=== PATIENT | female | born 1935 | race Caucasian/White ===

== ENCOUNTER 2017-12-07 07:38 | Inpatient (IN) | payer MEDICARE, BC ==
[2017-12-07] MEDS ORDERED: Bisacodyl 10 MG Supp RECTAL PRN (15:09)
[2017-12-07] MEDS: Acetaminophen/HYDROcodone 325-5 MG Tab PO PRN (17:13)
[2017-12-07] MEDS: Ferrous Sulfate 325 MG Tab PO SCH (18:52)
--- NOTE | 2017-12-07 19:35 | PCM.HP ---
H&P History of Present Illness - General Date of Service: 12/07/17 Admit Problem/Dx: Admission Diagnosis/Problem Admission Diagnosis/Problem Hip fracture requiring operative repair Source of Information: Patient, Old Records History Limitations: Reports: No Limitations - History of Present Illness Initial Comments - Free Text/Narative: Beti is an 82-year-old female admitted for physical therapy. She had revision of right arthroplasty by Dr. Saleh in [place], [place] on 2017. Post op,Ranjana has been doing suboptimally with therapy due to Rt quad weakness and leg giving out. She was determined to be unsafe for discharge home from [facility] and will need ongoing rehab in a swing bed. She has been deconditioned physically due to long standing Rt hip pain and will benefit from swing bed rehab. She has a history of chronic kidney disease stable, hypertension for which antihypertensives was stopped postop. She also has GERD pulmonary hypertension and history of mitral insufficiency that is stable. Ranjana lives alone in a duplex. right hip Pain Score (Numeric/FACES): 6 - Related Data Allergies/Adverse Reactions: Allergies Allergy/AdvReac Type Severity Reaction Status Date / Time No Known Allergies Allergy Verified 06/15/15 13:01 Home Medications: Home Meds Lutein/Minerals/Vit A,C & E [Ocuvite] 1 tab PO DAILY 10/03/13 [History] atorvaSTATin Calcium [Atorvastatin Calcium] 20 mg PO DAILY 10/03/13 [History] Aspirin [Ecotrin] 325 mg PO BID 12/07/17 [History] Bisacodyl [Dulcolax] 10 mg RC DAILY PRN 12/07/17 [History] Calcium Citrate/Vitamin D3 [Calcium Cit-Vit D 315-200] 1 tab PO BID 12/07/17 [ History] Docusate Sodium/Sennosides [Senokot-S] 2 each PO BEDTIME PRN 12/07/17 [History] Ferrous Sulfate [Slow Release Iron] 160 mg PO BIDPC 12/07/17 [History] Fish Oil/Bush-3 Fatty Acids [Fish Oil 1,000 MG] 1 gm PO DAILY 12/07/17 [History ] Hydrocodone/Acetaminophen [Hydrocodon-Acetaminophen 5-325] 1 tab PO Q6H PRN [History] Trimethoprim 100 mg PO DAILY 12/07/17 [History] Past Medical History HEENT History: Reports: Cataract Cardiovascular History: Reports: High Cholesterol, Hypertension Other Cardiovascular History: hx of mitral valve insufficiency; pulmonary hypertension. Respiratory History: Reports: Other (See Below) Other Respiratory History: dyspnea on exertion. Gastrointestinal History: Reports: GERD Genitourinary History: Reports: Other (See Below) Other Genitourinary History: Chronic kidney disease, urinary tract infection. [employer]SM[employer] WORK[employer] History: Reports: Musculoskeletal History: Reports: Other (See Below) Other Musculoskeletal History: bilateral knee sx, several back surgeries, right hip replacement 13 years ago. Immunologic History: Reports: Other (See Below) Other Immunologic History: chronic antibiotic suppression. - Past Surgical History Cardiovascular Surgical History: Reports: None Social & Family History - Family History Family Medical History: Noncontributory - Tobacco Use Smoking Status *Q: Never Smoker Second Hand Smoke Exposure: No - Caffeine Use Caffeine Use: Reports: None - Alcohol Use Days Per Week of Alcohol Use: 0 - Recreational Drug Use Recreational Drug Use: No H&P Review of Systems - Review of Systems: Review Of Systems: ROS reveals no pertinent complaints other than HPI. Exam - Exam Exam: See Below - Vital Signs Vital Signs: Last Vital Signs Temp 98.3 F 12/07/17 16:00 Pulse 81 12/07/17 16:00 Resp 18 12/07/17 16:00 BP 119/65 12/07/17 16:00 Pulse Ox 95 12/07/17 16:00 Weight: 84.482 kg - Exam Quality Assessment: No: Supplemental Oxygen General: Alert, Oriented HEENT: PERRLA Neck: Supple Lungs: Clear to Auscultation Cardiovascular: Regular Rate GI/Abdominal Exam: Normal Bowel Sounds, Soft Extremities: Normal Inspection, No Pedal Edema Skin: Warm, Dry, Intact Neurological: Cranial Nerves Intact, Reflexes Equal Bilateral Psychiatric: Alert, Normal Affect, Normal Mood *Q Meaningful Use (ADM) - VTE *Q VTE Criteria *Q: - Stroke *Q Stroke Criteria *Q: - AMI *Q AMI Criteria *Q: - Problem List (1) S/P revision of total hip SNOMED Code(s): 118583868, 046301890 ICD Code: Z96.649 - PRESENCE OF UNSPECIFIED ARTIFICIAL HIP JOINT Status: Acute Current Visit: Yes (2) CKD (chronic kidney disease) SNOMED Code(s): 168884080 ICD Code: N18.9 - CHRONIC KIDNEY DISEASE, UNSPECIFIED Status: Acute Current Visit: Yes Qualifiers: Chronic kidney disease stage: stage 2 (mild) Qualified Code(s): N18.2 - Chronic kidney disease, stage 2 (mild) (3) HLD (hyperlipidemia) SNOMED Code(s): 07997863 ICD Code: E78.5 - HYPERLIPIDEMIA, UNSPECIFIED Status: Chronic Current Visit: Yes Qualifiers: Hyperlipidemia type: pure hypercholesterolemia Qualified Code(s): E78.00 - Pure hypercholesterolemia, unspecified; E78.0 - Pure hypercholesterolemia (4) HTN (hypertension) SNOMED Code(s): 25919631 ICD Code: I10 - ESSENTIAL (PRIMARY) HYPERTENSION Status: Chronic Current Visit: Yes Qualifiers: Hypertension type: essential hypertension Qualified Code(s): I10 - Essential (primary) hypertension (5) Mitral insufficiency SNOMED Code(s): 47143117 ICD Code: I34.0 - NONRHEUMATIC MITRAL (VALVE) INSUFFICIENCY Status: Chronic Current Visit: Yes Qualifiers: Cardiac valve disease etiology: etiology unspecified Qualified Code(s): I34.0 - Nonrheumatic mitral (valve) insufficiency (6) GERD (gastroesophageal reflux disease) SNOMED Code(s): 849239647 ICD Code: K21.9 - GASTRO-ESOPHAGEAL REFLUX DISEASE WITHOUT ESOPHAGITIS Status: Chronic Current Visit: Yes Qualifiers: Esophagitis presence: esophagitis presence not specified Qualified Code(s) : K21.9 - Gastro-esophageal reflux disease without esophagitis (7) Pulmonary HTN SNOMED Code(s): 23118422 ICD Code: I27.20 - PULMONARY HYPERTENSION, UNSPECIFIED Status: Chronic Current Visit: Yes Problem List Initiated/Reviewed/Updated: Yes Orders Last 24hrs: Active Orders 24 hr Category Date Time Status Admission Status [Patient Status] [ADT] Routine ADT 12/07/17 13:58 Active Height and Weight [RC] .qthurs Care 12/07/17 15:08 Active Oxygen Therapy [RC] PRN Care 12/07/17 15:08 Active Up With Assistance [RC] 09,13,17,21 Care 12/07/17 15:08 Active VTE/DVT Education [RC] Per Unit Routine Care 12/07/17 15:08 Active Vital Signs [RC] 08 Care 12/07/17 15:08 Active OT Evaluation and Treatment [CONS] Routine Cons 12/07/17 15:08 Active PT Evaluation and Treatment [CONS] Routine Cons 12/07/17 15:08 Active Regular Diet [DIET] Diet 12/07/17 Dinner Active Acetaminophen/HYDROcodone [[place] 325-5 MG] Med 12/07/17 15:09 Active 1 tab PO Q6H PRN Aspirin [Ecotrin] Med 12/07/17 21:00 Active 325 mg PO BID Beta-Carotene(A) w/C & E/Min [Prosight] Med 12/08/17 09:00 Active 1 tab PO DAILY Bisacodyl [Dulcolax] Med 12/07/17 15:09 Active 10 mg RECTAL DAILY PRN Calcium Carbonate/Vitamin D3 [Calcium Carbonate/Vitamin Med 12/07/17 21:00 Active D 1250 MG-200 Unit] 1 tab PO BID Docusate Sodium/Sennosides [Senna Plus] Med 12/07/17 15:09 Active 2 tab PO BEDTIME PRN Ferrous Sulfate Med 12/07/17 19:00 Active 325 mg PO BIDPC Fish Oil/Bush-3 Fatty Acids [Fish Oil] Med 12/08/17 09:00 Active 1 gm PO DAILY Trimethoprim Med 12/08/17 09:00 Active 100 mg PO DAILY atorvaSTATin [Lipitor] Med 12/08/17 09:00 Active 20 mg PO DAILY Code Status [Resuscitation Status] Routine Resus Stat 12/07/17 14:35 Ordered Medication Orders Hydrocodone Bitart/Acetaminophen ([place] 325-5 Mg) 1 tab PO Q6H PRN PRN Reason: moderate pain Last Admin: 12/07/17 17:13 Dose: 1 tab Aspirin (Ecotrin) 325 mg PO BID [facility] Stop: 12/27/17 09:01 Atorvastatin Calcium (Lipitor) 20 mg PO DAILY [facility] Bisacodyl (Dulcolax) 10 mg RECTAL DAILY PRN PRN Reason: Constipation Calcium Carbonate (Calcium Carbonate/Vitamin D 1250 Mg-200 Unit) 1 tab PO BID [facility] Ferrous Sulfate (Ferrous Sulfate) 325 mg PO BIDPC [facility] Last Admin: 12/07/17 18:52 Dose: 325 mg Fish Oil (Fish Oil) 1 gm PO DAILY [facility] Multivitamins/Minerals (Prosight) 1 tab PO DAILY [facility] Senna/Docusate Sodium (Senna Plus) 2 tab PO BEDTIME PRN PRN Reason: Constipation Trimethoprim (Trimethoprim) 100 mg PO DAILY [facility] Assessment/Plan Comment:: We'll admit patient to swing bed for rehabilitation and physical strengthening. Resume home medications as sent from [facility], including postop aspirin for 20 more days. Watch blood pressure to see if indeed, she needs antihypertensives.
[2017-12-07] MEDS: Aspirin 325 MG Tab.EC PO SCH (20:37)
[2017-12-07] MEDS: Calcium Carbonate/Vitamin D3 1250 MG-200 Unit Tab PO SCH (20:37)
[2017-12-08] MEDS: Fish Oil/Omega-3 Fatty Acids 1 Gm Cap PO SCH (09:20)
[2017-12-08] MEDS: Calcium Carbonate/Vitamin D3 1250 MG-200 Unit Tab PO SCH ×2 (09:20→20:27)
[2017-12-08] MEDS: Ferrous Sulfate 325 MG Tab PO SCH ×2 (09:20→18:43)
[2017-12-08] MEDS: Aspirin 325 MG Tab.EC PO SCH ×2 (09:20→20:27)
[2017-12-08] MEDS: atorvaSTATin 20 MG Tab PO SCH (09:20)
[2017-12-08] MEDS: Beta-Carotene (Vitamin A) w/Vitamin C & E plus Minerals Tab PO SCH (09:21)
[2017-12-08] MEDS: Acetaminophen/HYDROcodone 325-5 MG Tab PO PRN (14:33)
[2017-12-09] MEDS: Acetaminophen/HYDROcodone 325-5 MG Tab PO PRN ×3 (05:06→21:01)
[2017-12-09] MEDS: Calcium Carbonate/Vitamin D3 1250 MG-200 Unit Tab PO SCH ×2 (08:26→20:48)
[2017-12-09] MEDS: Aspirin 325 MG Tab.EC PO SCH ×2 (08:27→20:48)
[2017-12-09] MEDS: Ferrous Sulfate 325 MG Tab PO SCH ×2 (08:27→19:27)
[2017-12-09] MEDS: Fish Oil/Omega-3 Fatty Acids 1 Gm Cap PO SCH (08:27)
[2017-12-09] MEDS: atorvaSTATin 20 MG Tab PO SCH (08:27)
[2017-12-09] MEDS: Beta-Carotene (Vitamin A) w/Vitamin C & E plus Minerals Tab PO SCH (08:28)
--- NOTE | 2017-12-09 11:50 | PCM.PN ---
- General Info Date of Service: 12/09/17 Subjective Update: Patient is an 82-year-old female status post right hip revision on 12/04/17 in [place]. She was admitted here on 12/07/17 for swing bed status for rehabilitation. Past medical history includes GERD, chronic kidney disease stage II, hyperlipidemia, hypertension, mitral insufficiency, pulmonary hypertension. The patient overall is doing well. She continues to struggle with ambulation and the right hip giving way. Pain is well controlled. She doesn't have much appetite which we attribute the pain medication. Hasn't had any chest pain, shortness of breath other than with exertion, no nausea or vomiting. No diarrhea. - Patient Data Vitals - Most Recent: Last Vital Signs Temp 36.6 C 12/09/17 04:28 Pulse 73 12/09/17 04:28 Resp 18 12/09/17 04:28 BP 125/68 12/09/17 04:28 Pulse Ox 95 12/09/17 04:28 Weight - Most Recent: 84.482 kg Med Orders - Current: Current Medications Hydrocodone Bitart/Acetaminophen ([place] 325-5 Mg) 1 tab PO Q6H PRN PRN Reason: moderate pain Last Admin: 12/09/17 11:22 Dose: 1 tab Aspirin (Ecotrin) 325 mg PO BID [facility] Stop: 12/27/17 09:01 Last Admin: 12/09/17 08:27 Dose: 325 mg Atorvastatin Calcium (Lipitor) 20 mg PO DAILY [facility] Last Admin: 12/09/17 08:27 Dose: 20 mg Bisacodyl (Dulcolax) 10 mg RECTAL DAILY PRN PRN Reason: Constipation Calcium Carbonate (Calcium Carbonate/Vitamin D 1250 Mg-200 Unit) 1 tab PO BID [facility] Last Admin: 12/09/17 08:26 Dose: 1 tab Ferrous Sulfate (Ferrous Sulfate) 325 mg PO BIDPC [facility] Last Admin: 12/09/17 08:27 Dose: 325 mg Fish Oil (Fish Oil) 1 gm PO DAILY [facility] Last Admin: 12/09/17 08:27 Dose: 1 gm Multivitamins/Minerals (Prosight) 1 tab PO DAILY [facility] Last Admin: 12/09/17 08:28 Dose: 1 tab Senna/Docusate Sodium (Senna Plus) 2 tab PO BEDTIME PRN PRN Reason: Constipation Last Admin: 12/09/17 05:07 Dose: 2 tab Trimethoprim (Trimethoprim) 100 mg PO DAILY [facility] Last Admin: 12/09/17 08:28 Dose: 100 mg - Exam General: Alert, Oriented, Cooperative, No Acute Distress HEENT: Pupils Equal, Pupils Reactive Neck: Supple Lungs: Clear to Auscultation, Normal Respiratory Effort Cardiovascular: Regular Rate, Regular Rhythm, No Murmurs GI/Abdominal Exam: Normal Bowel Sounds, Soft, Non-Tender Wound/Incisions: Dressing Dry and Intact (No erythema.) Psy/Mental Status: Alert, Normal Affect, Normal Mood - Problem List & Annotations (1) S/P revision of total hip SNOMED Code(s): 732258264, 900513143 Code(s): Z96.649 - PRESENCE OF UNSPECIFIED ARTIFICIAL HIP JOINT Status: Acute Current Visit: Yes Annotation/Comment:: Continue physical therapy, occupational therapy, and pain management. (2) CKD (chronic kidney disease) SNOMED Code(s): 952817479 Code(s): N18.9 - CHRONIC KIDNEY DISEASE, UNSPECIFIED Status: Acute Current Visit: Yes Qualifiers: Chronic kidney disease stage: stage 2 (mild) Qualified Code(s): N18.2 - Chronic kidney disease, stage 2 (mild) Annotation/Comment:: Monitor. Avoid renal toxic drugs. (3) GERD (gastroesophageal reflux disease) SNOMED Code(s): 362450974 Code(s): K21.9 - GASTRO-ESOPHAGEAL REFLUX DISEASE WITHOUT ESOPHAGITIS Status: Chronic Current Visit: Yes Qualifiers: Esophagitis presence: esophagitis presence not specified Qualified Code(s) : K21.9 - Gastro-esophageal reflux disease without esophagitis Annotation/Comment:: Controlled. (4) HLD (hyperlipidemia) SNOMED Code(s): 74920111 Code(s): E78.5 - HYPERLIPIDEMIA, UNSPECIFIED Status: Chronic Current Visit: Yes Qualifiers: Hyperlipidemia type: pure hypercholesterolemia Qualified Code(s): E78.00 - Pure hypercholesterolemia, unspecified; E78.0 - Pure hypercholesterolemia Annotation/Comment:: Stable. (5) HTN (hypertension) SNOMED Code(s): 23653307 Code(s): I10 - ESSENTIAL (PRIMARY) HYPERTENSION Status: Chronic Current Visit: Yes Qualifiers: Hypertension type: essential hypertension Qualified Code(s): I10 - Essential (primary) hypertension Annotation/Comment:: Blood pressure currently well controlled off home medication. Monitor. (6) Mitral insufficiency SNOMED Code(s): 92645702 Code(s): I34.0 - NONRHEUMATIC MITRAL (VALVE) INSUFFICIENCY Status: Chronic Current Visit: Yes Qualifiers: Cardiac valve disease etiology: etiology unspecified Qualified Code(s): I34.0 - Nonrheumatic mitral (valve) insufficiency Annotation/Comment:: Monitor. (7) Pulmonary HTN SNOMED Code(s): 85056197 Code(s): I27.20 - PULMONARY HYPERTENSION, UNSPECIFIED Status: Chronic Current Visit: Yes Annotation/Comment:: Monitor. - Problem List Review Problem List Initiated/Reviewed/Updated: Yes - My Orders Last 24 Hours: My Active Orders 12/10/17 05:11 CBC WITH AUTO DIFF [HEME] AM COMPREHENSIVE METABOLIC PN,CMP [CHEM] AM
[2017-12-10] MEDS: Calcium Carbonate/Vitamin D3 1250 MG-200 Unit Tab PO SCH ×2 (08:17→20:39)
[2017-12-10] MEDS: Aspirin 325 MG Tab.EC PO SCH ×2 (08:18→20:39)
[2017-12-10] MEDS: Ferrous Sulfate 325 MG Tab PO SCH ×2 (08:18→17:44)
[2017-12-10] MEDS: Fish Oil/Omega-3 Fatty Acids 1 Gm Cap PO SCH (08:18)
[2017-12-10] MEDS: Beta-Carotene (Vitamin A) w/Vitamin C & E plus Minerals Tab PO SCH (08:18)
[2017-12-10] MEDS: atorvaSTATin 20 MG Tab PO SCH (08:18)
[2017-12-10] MEDS: Acetaminophen/HYDROcodone 325-5 MG Tab PO PRN (10:36)
--- NOTE | 2017-12-10 13:15 | PCM.SN ---
- Free Text/Narrative Note: Patient is an 82-year-old female currently on swing bed day #4 for right total hip revision on 12/04/17. I had checked some labs this morning and the patient's labs looked good with the exception of a low hemoglobin of 8.2 and a low albumin at 2.1. Discussed these results with the patient. I recommended we start her on oral iron and recheck a hemoglobin in the morning to make sure that this isn't continuing to drift down. With regards to the low albumin talked about a high protein diet and the importance of albumin in wound healing. Patient's vital signs were normal, no concerns today. She was feeling well overall.
[2017-12-11] MEDS: Acetaminophen/HYDROcodone 325-5 MG Tab PO PRN ×3 (05:24→20:35)
[2017-12-11] MEDS: Beta-Carotene (Vitamin A) w/Vitamin C & E plus Minerals Tab PO SCH (08:35)
[2017-12-11] MEDS: Calcium Carbonate/Vitamin D3 1250 MG-200 Unit Tab PO SCH ×2 (08:35→20:33)
[2017-12-11] MEDS: Fish Oil/Omega-3 Fatty Acids 1 Gm Cap PO SCH (08:36)
[2017-12-11] MEDS: atorvaSTATin 20 MG Tab PO SCH (08:36)
[2017-12-11] MEDS: Aspirin 325 MG Tab.EC PO SCH ×2 (08:36→20:34)
[2017-12-11] MEDS: Ferrous Sulfate 325 MG Tab PO SCH ×2 (08:36→18:29)
[2017-12-12] MEDS: Acetaminophen/HYDROcodone 325-5 MG Tab PO PRN ×2 (07:51→16:21)
[2017-12-12] MEDS: Calcium Carbonate/Vitamin D3 1250 MG-200 Unit Tab PO SCH ×2 (08:32→20:32)
[2017-12-12] MEDS: Aspirin 325 MG Tab.EC PO SCH ×2 (08:32→20:32)
[2017-12-12] MEDS: Ferrous Sulfate 325 MG Tab PO SCH ×2 (08:32→18:08)
[2017-12-12] MEDS: Fish Oil/Omega-3 Fatty Acids 1 Gm Cap PO SCH (08:33)
[2017-12-12] MEDS: atorvaSTATin 20 MG Tab PO SCH (08:33)
[2017-12-12] MEDS: Beta-Carotene (Vitamin A) w/Vitamin C & E plus Minerals Tab PO SCH (08:33)
[2017-12-13] MEDS: Acetaminophen/HYDROcodone 325-5 MG Tab PO PRN ×3 (04:00→19:56)
--- NOTE | 2017-12-13 07:40 | PCM.PN ---
- General Info Date of Service: 12/13/17 Subjective Update: Patient is an 82-year-old female status post right hip revision on 12/04/17 in [place] admitted here on the for swing bed status. She's currently on swing bed day #7. Continues to have giveaway of that right leg when she ambulates although it's improved. She has had no falls. She's had no chest pain , no shortness of breath, no nausea, no vomiting. Appetite has improved. She's been eating a high protein diet. - Patient Data Vitals - Most Recent: Last Vital Signs Temp 36.9 C 12/12/17 08:00 Pulse 80 12/12/17 08:00 Resp 15 12/12/17 08:00 BP 112/69 12/12/17 08:00 Pulse Ox 100 12/12/17 15:00 Weight - Most Recent: 84.482 kg Med Orders - Current: Current Medications Hydrocodone Bitart/Acetaminophen ([place] 325-5 Mg) 1 tab PO Q6H PRN PRN Reason: moderate pain Last Admin: 12/13/17 04:00 Dose: 1 tab Aspirin (Ecotrin) 325 mg PO BID [facility] Stop: 12/27/17 09:01 Last Admin: 12/12/17 20:32 Dose: 325 mg Atorvastatin Calcium (Lipitor) 20 mg PO DAILY [facility] Last Admin: 12/12/17 08:33 Dose: 20 mg Bisacodyl (Dulcolax) 10 mg RECTAL DAILY PRN PRN Reason: Constipation Last Admin: 12/10/17 06:32 Dose: 10 mg Calcium Carbonate (Calcium Carbonate/Vitamin D 1250 Mg-200 Unit) 1 tab PO BID [facility] Last Admin: 12/12/17 20:32 Dose: 1 tab Ferrous Sulfate (Ferrous Sulfate) 325 mg PO BIDMEALS [facility] Last Admin: 12/12/17 18:08 Dose: 325 mg Fish Oil (Fish Oil) 1 gm PO DAILY [facility] Last Admin: 12/12/17 08:33 Dose: 1 gm Multivitamins/Minerals (Prosight) 1 tab PO DAILY [facility] Last Admin: 12/12/17 08:33 Dose: 1 tab Senna/Docusate Sodium (Senna Plus) 2 tab PO BEDTIME PRN PRN Reason: Constipation Last Admin: 12/11/17 20:31 Dose: 2 tab Trimethoprim (Trimethoprim) 100 mg PO DAILY [facility] Last Admin: 12/12/17 08:33 Dose: 100 mg Discontinued Medications Ferrous Sulfate (Ferrous Sulfate) 325 mg PO BIDPC [facility] Last Admin: 12/10/17 08:18 Dose: 325 mg - Exam General: Alert, Oriented, Cooperative, No Acute Distress HEENT: Pupils Equal, Pupils Reactive Neck: Supple Lungs: Clear to Auscultation, Normal Respiratory Effort Cardiovascular: Regular Rate, Regular Rhythm GI/Abdominal Exam: Normal Bowel Sounds, Soft, Non-Tender, No Distention Back Exam: Normal Inspection Extremities: Normal Inspection, No Pedal Edema Skin: Warm, Dry, Intact Psy/Mental Status: Alert - Problem List & Annotations (1) S/P revision of total hip SNOMED Code(s): 554427824, 572430206 Code(s): Z96.649 - PRESENCE OF UNSPECIFIED ARTIFICIAL HIP JOINT Status: Acute Current Visit: Yes Annotation/Comment:: Continue physical therapy, occupational therapy, and pain management. (2) CKD (chronic kidney disease) SNOMED Code(s): 185635013 Code(s): N18.9 - CHRONIC KIDNEY DISEASE, UNSPECIFIED Status: Acute Current Visit: Yes Qualifiers: Chronic kidney disease stage: stage 2 (mild) Qualified Code(s): N18.2 - Chronic kidney disease, stage 2 (mild) Annotation/Comment:: Monitor. Avoid renal toxic drugs. (3) GERD (gastroesophageal reflux disease) SNOMED Code(s): 353152909 Code(s): K21.9 - GASTRO-ESOPHAGEAL REFLUX DISEASE WITHOUT ESOPHAGITIS Status: Chronic Current Visit: Yes Qualifiers: Esophagitis presence: esophagitis presence not specified Qualified Code(s) : K21.9 - Gastro-esophageal reflux disease without esophagitis Annotation/Comment:: Controlled. (4) HLD (hyperlipidemia) SNOMED Code(s): 63877287 Code(s): E78.5 - HYPERLIPIDEMIA, UNSPECIFIED Status: Chronic Current Visit: Yes Qualifiers: Hyperlipidemia type: pure hypercholesterolemia Qualified Code(s): E78.00 - Pure hypercholesterolemia, unspecified; E78.0 - Pure hypercholesterolemia Annotation/Comment:: Stable. (5) HTN (hypertension) SNOMED Code(s): 35239811 Code(s): I10 - ESSENTIAL (PRIMARY) HYPERTENSION Status: Chronic Current Visit: Yes Qualifiers: Hypertension type: essential hypertension Qualified Code(s): I10 - Essential (primary) hypertension Annotation/Comment:: Blood pressure currently well controlled off home medication. Monitor. (6) Mitral insufficiency SNOMED Code(s): 31134062 Code(s): I34.0 - NONRHEUMATIC MITRAL (VALVE) INSUFFICIENCY Status: Chronic Current Visit: Yes Qualifiers: Cardiac valve disease etiology: etiology unspecified Qualified Code(s): I34.0 - Nonrheumatic mitral (valve) insufficiency Annotation/Comment:: Monitor. (7) Pulmonary HTN SNOMED Code(s): 01377343 Code(s): I27.20 - PULMONARY HYPERTENSION, UNSPECIFIED Status: Chronic Current Visit: Yes Annotation/Comment:: Monitor. - Problem List Review Problem List Initiated/Reviewed/Updated: Yes - My Orders Last 24 Hours: My Active Orders 12/14/17 05:11 CBC WITH AUTO DIFF [HEME] AM COMPREHENSIVE METABOLIC PN,CMP [CHEM] AM
[2017-12-13] MEDS: atorvaSTATin 20 MG Tab PO SCH (08:46)
[2017-12-13] MEDS: Fish Oil/Omega-3 Fatty Acids 1 Gm Cap PO SCH (08:46)
[2017-12-13] MEDS: Calcium Carbonate/Vitamin D3 1250 MG-200 Unit Tab PO SCH ×2 (08:46→19:59)
[2017-12-13] MEDS: Ferrous Sulfate 325 MG Tab PO SCH ×2 (08:46→19:56)
[2017-12-13] MEDS: Aspirin 325 MG Tab.EC PO SCH ×2 (08:46→20:00)
[2017-12-13] MEDS: Beta-Carotene (Vitamin A) w/Vitamin C & E plus Minerals Tab PO SCH (08:47)
[2017-12-14] MEDS: Acetaminophen/HYDROcodone 325-5 MG Tab PO PRN ×3 (04:40→21:51)
[2017-12-14] MEDS: Beta-Carotene (Vitamin A) w/Vitamin C & E plus Minerals Tab PO SCH (08:21)
[2017-12-14] MEDS: Aspirin 325 MG Tab.EC PO SCH ×2 (08:21→20:16)
[2017-12-14] MEDS: Ferrous Sulfate 325 MG Tab PO SCH ×2 (08:21→18:59)
[2017-12-14] MEDS: atorvaSTATin 20 MG Tab PO SCH (08:21)
[2017-12-14] MEDS: Fish Oil/Omega-3 Fatty Acids 1 Gm Cap PO SCH (08:21)
[2017-12-14] MEDS: Calcium Carbonate/Vitamin D3 1250 MG-200 Unit Tab PO SCH ×2 (08:21→20:15)
--- NOTE | 2017-12-14 14:04 | PCM.PN ---
- General Info Date of Service: 12/14/17 Subjective Update: Patient is an 82-year-old female status post right hip revision on 12/04/17 and [place] who was admitted to swing bed on 12/07/17 and likely will be discharging home tomorrow. She's been doing very well. No chest pain, no shortness of breath , no nausea, no vomiting, no diarrhea. Still weak and having occasional giveaway on that right side but able to use the walker effectively to prevent falls. Hemoglobin this morning was 8.6. Albumin is up to 2.5. - Patient Data Vitals - Most Recent: Last Vital Signs Temp 36.6 C 12/13/17 07:45 Pulse 74 12/14/17 07:20 Resp 20 12/14/17 07:20 BP 119/76 12/14/17 07:20 Pulse Ox 98 12/14/17 07:20 Weight - Most Recent: 84.482 kg Lab Results Last 24 Hours: Laboratory Results - last 24 hr 12/14/17 12/14/17 Range/Units 06:00 06:00 WBC 6.2 (4.5-12.0) X10-3/uL RBC 3.00 L (3.23-5.20) x10(6)uL Hgb 8.6 L (11.5-15.5) g/dL Hct 26.0 L (30.0-51.3) % MCV 86.6 (80-96) fL MCH 28.7 (27.7-33.6) pg MCHC 33.2 (32.2-35.4) g/dL RDW 14.5 (11.5-15.5) % Plt Count 429 H (125-369) X10(3)uL MPV 6.9 L (7.4-10.4) fL Neut % (Auto) 52.8 (46-82) % Lymph % (Auto) 23.8 (13-37) % Burt % (Auto) 11.2 (4-12) % Eos % (Auto) 12 H (1.0-5.0) % Baso % (Auto) 0 (0-2) % Neut # (Auto) 3.3 (1.6-8.3) # Lymph # (Auto) 1.5 (0.6-5.0) # Burt # (Auto) 0.7 (0.0-1.3) # Eos # (Auto) 0.7 (0.0-0.8) # Baso # (Auto) 0.0 (0.0-0.2) # Sodium 141 (135-145) mmol/L Potassium 4.6 (3.5-5.3) mmol/L Chloride 106 (100-110) mmol/L Carbon Dioxide 29 (21-32) mmol/L BUN 18 (7-18) mg/dL Creatinine 1.1 H (0.55-1.02) mg/dL Est Cr Clr Drug Dosing 32.62 mL/min Estimated GFR (MDRD) 48 L (>60) BUN/Creatinine Ratio 16.4 (9-20) Glucose 94 (80-116) mg/dL Calcium 8.6 (8.6-10.2) mg/dL Total Bilirubin 0.3 (0.1-1.3) mg/dL AST 15 D (5-25) IU/L ALT 13 (12-36) U/L Alkaline Phosphatase 73 (56-112) IU/L Total Protein 5.8 L (6.0-8.0) g/dL Albumin 2.5 L (3.2-4.6) g/dL Globulin 3.3 g/dL Albumin/Globulin Ratio 0.8 Med Orders - Current: Current Medications Hydrocodone Bitart/Acetaminophen ([place] 325-5 Mg) 1 tab PO Q6H PRN PRN Reason: moderate pain Last Admin: 12/14/17 12:58 Dose: 1 tab Aspirin (Ecotrin) 325 mg PO BID [facility] Stop: 12/27/17 09:01 Last Admin: 12/14/17 08:21 Dose: 325 mg Atorvastatin Calcium (Lipitor) 20 mg PO DAILY [facility] Last Admin: 12/14/17 08:21 Dose: 20 mg Bisacodyl (Dulcolax) 10 mg RECTAL DAILY PRN PRN Reason: Constipation Last Admin: 12/10/17 06:32 Dose: 10 mg Calcium Carbonate (Calcium Carbonate/Vitamin D 1250 Mg-200 Unit) 1 tab PO BID [facility] Last Admin: 12/14/17 08:21 Dose: 1 tab Ferrous Sulfate (Ferrous Sulfate) 325 mg PO BIDMEALS [facility] Last Admin: 12/14/17 08:21 Dose: 325 mg Fish Oil (Fish Oil) 1 gm PO DAILY [facility] Last Admin: 12/14/17 08:21 Dose: 1 gm Multivitamins/Minerals (Prosight) 1 tab PO DAILY [facility] Last Admin: 12/14/17 08:21 Dose: 1 tab Senna/Docusate Sodium (Senna Plus) 2 tab PO BEDTIME PRN PRN Reason: Constipation Last Admin: 12/11/17 20:31 Dose: 2 tab Trimethoprim (Trimethoprim) 100 mg PO DAILY [facility] Last Admin: 12/14/17 08:21 Dose: 100 mg Discontinued Medications Ferrous Sulfate (Ferrous Sulfate) 325 mg PO BIDPC [facility] Last Admin: 12/10/17 08:18 Dose: 325 mg - Exam General: Alert, Oriented, Cooperative, No Acute Distress HEENT: Pupils Equal, Pupils Reactive Neck: Supple Lungs: Clear to Auscultation (Has some popping but it clears with deep inspiration. Stressed using IS.), Normal Respiratory Effort Cardiovascular: Regular Rate, Regular Rhythm, No Murmurs GI/Abdominal Exam: Normal Bowel Sounds, Soft, Non-Tender, No Organomegaly, No Distention Extremities: Pedal Edema (1+ edema bilaterally.) Psy/Mental Status: Alert, Normal Affect, Normal Mood - Problem List & Annotations (1) S/P revision of total hip SNOMED Code(s): 855578552, 843878349 Code(s): Z96.649 - PRESENCE OF UNSPECIFIED ARTIFICIAL HIP JOINT Status: Acute Current Visit: Yes Annotation/Comment:: Continue physical therapy, occupational therapy, and pain management. Ready for discharge home tomorrow. (2) CKD (chronic kidney disease) SNOMED Code(s): 346523491 Code(s): N18.9 - CHRONIC KIDNEY DISEASE, UNSPECIFIED Status: Acute Current Visit: Yes Qualifiers: Chronic kidney disease stage: stage 2 (mild) Qualified Code(s): N18.2 - Chronic kidney disease, stage 2 (mild) Annotation/Comment:: Monitor. Avoid renal toxic drugs. On check today was 1.1. (3) GERD (gastroesophageal reflux disease) SNOMED Code(s): 935490722 Code(s): K21.9 - GASTRO-ESOPHAGEAL REFLUX DISEASE WITHOUT ESOPHAGITIS Status: Chronic Current Visit: Yes Qualifiers: Esophagitis presence: esophagitis presence not specified Qualified Code(s) : K21.9 - Gastro-esophageal reflux disease without esophagitis Annotation/Comment:: Controlled. (4) HLD (hyperlipidemia) SNOMED Code(s): 90341726 Code(s): E78.5 - HYPERLIPIDEMIA, UNSPECIFIED Status: Chronic Current Visit: Yes Qualifiers: Hyperlipidemia type: pure hypercholesterolemia Qualified Code(s): E78.00 - Pure hypercholesterolemia, unspecified; E78.0 - Pure hypercholesterolemia Annotation/Comment:: Stable. (5) HTN (hypertension) SNOMED Code(s): 96046710 Code(s): I10 - ESSENTIAL (PRIMARY) HYPERTENSION Status: Chronic Current Visit: Yes Qualifiers: Hypertension type: essential hypertension Qualified Code(s): I10 - Essential (primary) hypertension Annotation/Comment:: Blood pressure currently well controlled off home medication. Currently being held are Norvasc 5 mg and lisinopril/ hydrochlorothiazide 20/12.5. (6) Mitral insufficiency SNOMED Code(s): 39368177 Code(s): I34.0 - NONRHEUMATIC MITRAL (VALVE) INSUFFICIENCY Status: Chronic Current Visit: Yes Qualifiers: Cardiac valve disease etiology: etiology unspecified Qualified Code(s): I34.0 - Nonrheumatic mitral (valve) insufficiency Annotation/Comment:: Monitor. (7) Pulmonary HTN SNOMED Code(s): 18900804 Code(s): I27.20 - PULMONARY HYPERTENSION, UNSPECIFIED Status: Chronic Current Visit: Yes Annotation/Comment:: Monitor. - Problem List Review Problem List Initiated/Reviewed/Updated: Yes
[2017-12-15] MEDS: Calcium Carbonate/Vitamin D3 1250 MG-200 Unit Tab PO SCH (08:54)
[2017-12-15] MEDS: atorvaSTATin 20 MG Tab PO SCH (08:54)
[2017-12-15] MEDS: Fish Oil/Omega-3 Fatty Acids 1 Gm Cap PO SCH (08:54)
[2017-12-15] MEDS: Beta-Carotene (Vitamin A) w/Vitamin C & E plus Minerals Tab PO SCH (08:54)
[2017-12-15] MEDS: Aspirin 325 MG Tab.EC PO SCH (08:54)
[2017-12-15] MEDS: Ferrous Sulfate 325 MG Tab PO SCH (08:54)
[2017-12-15 09:36] VITALS: BP 130/84
--- NOTE | 2017-12-15 09:47 | DISCH ---
DISCHARGE DATE: 12/15/2017 REASON FOR ADMISSION: 1. Status post revision of the total hip. 2. CKD. 3. HLD. 4. Hypertension. 5. Mitral insufficiency. 6. GERD. 7. Pulmonary hypertension. DISCHARGE DIAGNOSES: 1. Status post revision of the total hip. 2. Chronic kidney disease. 3. HLD. 4. Hypertension. 5. Mitral insufficiency. 6. Gastroesophageal reflux disease. 7. Pulmonary hypertension. CONSULTATIONS: Physical Therapy and Occupational Therapy. BRIEF HISTORY: This is an 82-year-old female admitted after revision of the right hip in [place], [place]. She has been going physical therapy and has done quite well. She does have a history of hypertension, but the blood pressure medications were discontinued in [place] prior to discharge because of the low blood pressure. She was placed on 325 mg of aspirin for DVT prophylaxis. She did well here and hemoglobin came up from 8.2 to 8.6. She was ready to go home on the with physical therapy as an outpatient. DISCHARGE MEDICATIONS: 1. Aspirin 325 mg b.i.d. up until 12/27/2017. 2. Lipitor 10 mg a day. 3. Acetaminophen/hydrocodone 1 tablet q.6 hours p.r.n. 4. Trimethoprim 100 mg a day. 5. Fish oil. 6. Ferrous sulfate. 7. Docusate at bedtime p.r.n. FOLLOWUP: She has an appointment on Monday with Orthopedics. Please note that I spent more than 35 minutes in the discharge of the patient. /[id number] TERRI/LIBBY
== END 2017-12-15 09:30 | disposition home or self-care (01) | DRG 948 ==
LOC: FB.MS 13:53
PROVIDERS: ADMIT Family Medicine; ATTEND Family Medicine
DX: R53.1 Weakness (principal); Z96.641 Presence of right artificial hip joint; Z98.890 Other specified postprocedural states; I12.9 Hypertensive chronic kidney disease with stage 1 through stage 4 chronic kidney disease, or unspecified chronic kidney disease; N18.2 Chronic kidney disease, stage 2 (mild); K21.9 Gastro-esophageal reflux disease without esophagitis; I27.20 Pulmonary hypertension, unspecified; I34.0 Nonrheumatic mitral (valve) insufficiency; E78.00 Pure hypercholesterolemia, unspecified; D64.9 Anemia, unspecified; E88.09 Other disorders of plasma-protein metabolism, not elsewhere classified; Z79.82 Long term (current) use of aspirin
CPT/HCPCS: 36415; 80053; 85018; 85025; 97110-GO; 97110-GP; 97116-GP; 97161-GP; 97165-GO; 97530-GO; 97530-GP; 97535-GO; A9270-GY

== ENCOUNTER 2022-09-25 10:04 | Emergency (ER) | payer MEDICARE ==
[2022-09-25] MEDS ORDERED: Amoxicillin/Clavulanate K 500-125 MG Tab PO ONE (10:05)
[2022-09-25 12:00] LABS: ESTIMATED GFR 55 mL/min (>60)
[2022-09-25 17:45] VITALS: BP 163/70; PULSE 90
== END 2022-09-25 13:05 | disposition home or self-care (01) ==
LOC: FB.ED 10:04
DX: R07.81 Pleurodynia (principal); N39.0 Urinary tract infection, site not specified; E78.00 Pure hypercholesterolemia, unspecified; I10 Essential (primary) hypertension; K21.9 Gastro-esophageal reflux disease without esophagitis; Z79.82 Long term (current) use of aspirin; Z79.899 Other long term (current) drug therapy
CPT/HCPCS: 36415; 71046; 80053; 81001; 83880; 84484; 85025; 87086; 87088; 87186; 93005; 99284; A9270